=== PATIENT | male | born 1965 | race Caucasian/White ===

== ENCOUNTER → 2017-12-18 | Outpatient (CLI) | payer OTHER ==
[2017-12-18 12:52] LABS: HEMATOCRIT 45.2 % (42-52); HEMOGLOBIN 15.8 g/dL (14.0-18.0); MEAN CELL VOLUME 96.2 fL (80-100); MEAN CORPUSCULAR HEMOGLOBIN 33.6 pg (25-34); MEAN PLATELET VOLUME 12.1 fL (7.4-10.4); PLATELET COUNT 209 K/uL (130-400); RED CELL DISTRIBUTION WIDTH CV 12.1 % (11.5-14.5); RED CELL DISTRIBUTION WIDTH SD 42.2 fL (36.4-46.3); WHITE BLOOD COUNT 6.52 K/uL (4.8-10.8)
[2017-12-18 13:35] LABS: ALBUMIN 4.3 gm/dl (3.4-5.0); ALT/SGPT 20 U/L (12-78); BLOOD UREA NITROGEN 17 mg/dl (7-18); BUN/CREATININE RATIO 15.9 (10-20); CALCIUM 9.6 mg/dl (8.5-10.1); CARBON DIOXIDE 29 mmol/L (21-32); CHLORIDE 103 mmol/L (98-107); CHOLESTEROL 193 mg/dl (0-200); CREATININE 1.06 mg/dl (0.60-1.40); EstGFR CKD-E AfrAm 93.7; EstGFR CKD-E NON AfrAm 80.9; POTASSIUM 3.8 mmol/L (3.5-5.1); SODIUM 140 mmol/L (136-145)
[2017-12-18 13:35] LABS: GLUCOSE 74 mg/dl (70-99)
[2017-12-18 13:46] LABS: ALB/GLOB RATIO 1.2 (0.9-2); ALKALINE PHOSPHATASE 71 U/L (45-117); AST/SGOT 23 U/L (15-37); CHOLESTEROL/HDL RATIO 4.5; HDL CHOLESTEROL 43 mg/dl; LDL CHOLESTEROL CALCULATED 130 mg/dl; TOTAL PROTEIN 7.9 gm/dl (6.4-8.2); TRIGLYCERIDES 100 mg/dl (0-150); VERY LOW DENSITY LIPOPROT CALC 20 mg/dl
== END | disposition home or self-care (01) ==
LOC: C.LABBFT 08:37
DX: R00.2 Palpitations (principal); R94.31 Abnormal electrocardiogram [ECG] [EKG]

== ENCOUNTER 2018-07-06 17:49 | Emergency (ER) | payer OTHER ==
[~2018-07-06] VITALS: Ht 177.8 cm; Wt 77.8 kg
[2018-07-06 17:58] VITALS: TEMP 36.8; Ht 177.8 cm; Wt 77.8 kg
[2018-07-06 18:28] VITALS: O2SAT 97
[2018-07-06 18:49] LABS: BASO % 0.3 %; BASO ABS # 0.02 K/uL (0-0.2); EOS % 0.6 %; EOS ABS # 0.04 K/uL (0-0.5); HEMATOCRIT 42.3 % (42-52); IG# 0.01 K/uL (0.00-0.02); LYMPH % 28.8 %; LYMPH ABS # 1.95 K/uL (1.2-3.4); MEAN CELL VOLUME 93.4 fL (80-100); MEAN CORPUSCULAR HEMOGLOBIN 33.1 pg (25-34); MEAN CORPUSCULAR HGB CONC 35.5 g/dl (32-36); MEAN PLATELET VOLUME 11.7 fL (7.4-10.4); MONO % 8.3 %; MONO ABS # 0.56 K/uL (0.11-0.59); NEUT % 61.9 %; PLATELET COUNT 181 K/uL (130-400); RED CELL DISTRIBUTION WIDTH CV 11.9 % (11.5-14.5); RED CELL DISTRIBUTION WIDTH SD 40.4 fL (36.4-46.3); WHITE BLOOD COUNT 6.78 K/uL (4.8-10.8)
--- NOTE | 2018-07-06 18:56 | DIAGNOSTIC IMAGING REPORT ---
CHEST ONE VIEW PORTABLE CLINICAL HISTORY: 52 years-old Male presenting with palpitations. TECHNIQUE: Portable upright AP view of the chest was obtained. COMPARISON: None. FINDINGS: Atherosclerosis of the aortic arch. Cardiac silhouette enlarged. Lungs mildly hyperinflated. Nodular opacity in the right mid lung. No other focal opacity. No large effusion or pneumothorax. Osseous structures normal. IMPRESSION: 1. Apparent cardiomegaly. 2. Hyperinflation. 3. Nodular opacity in the right midlung, underlying pulmonary nodule not excluded. Further evaluation with dedicated PA and lateral views to be considered versus chest CT. Electronically signed by: Wallace Medina M.D. 07/06/2018 6:55 PM Dictated Date/Time: 07/06/2018 6:54 PM
[2018-07-06 19:00] LABS: PTT PATIENT 26.4 SECONDS (21.0-31.0)
[2018-07-06 19:19] LABS: ALKALINE PHOSPHATASE 76 U/L (45-117); ALT/SGPT 22 U/L (12-78); AST/SGOT 19 U/L (15-37); BLOOD UREA NITROGEN 22 mg/dl (7-18); CALCIUM 8.8 mg/dl (8.5-10.1); CARBON DIOXIDE 22 mmol/L (21-32); GLUCOSE 99 mg/dl (70-99); POTASSIUM 3.7 mmol/L (3.5-5.1); SODIUM 138 mmol/L (136-145); TOTAL PROTEIN 7.4 gm/dl (6.4-8.2)
[2018-07-06] MEDS ORDERED: MULT60CA PO (20:25)
[2018-07-06] MEDS ORDERED: CHOL20005 PO (20:25)
[2018-07-06] MEDS ORDERED: MUCINEX PO (20:25)
[2018-07-06] MEDS ORDERED: FEXO1TAB46 PO (20:25)
[2018-07-06] MEDS ORDERED: ZINC30TA3 PO (20:25)
[2018-07-06] MEDS ORDERED: RESV1CAP3 PO (20:25)
[2018-07-06] MEDS ORDERED: KRIL1CAP24 PO (20:25)
[2018-07-06] MEDS ORDERED: METOPROLOL TARTRATE 25 MG TAB PO STA (20:39)
[2018-07-06] MEDS ORDERED: METO25TA56 PO (20:54)
[2018-07-06 21:24] VITALS: BP 134/83; PULSE 72; O2SAT 96
--- NOTE | 2018-07-06 23:29 | EMERGENCY ROOM VISIT NOTE ---
History Report prepared by Diamante: Cheyenne Zhong Under the Supervision of: Dr. Chris Butler M.D. First contact with patient: 18:03 Chief Complaint: CARDIAC ASSESSMENT Stated Complaint: IRREGULAR HEARTBEAT DR ANDERSON Nursing Triage Summary: "I have been having issues with my heart rate since december. I had echo completed then I thought everything was fine but they told me today that it wasnt normal to come to the er now." History of Present Illness The patient is a 52 year old male who presents to the Emergency Room for a cardiac assessment beginning in October 2017. He notes he has been feeling increased heart palpations today, so he called Dr. Pena, Cardiology who recommended the patient come to the ED. The patient states he tries to stay relaxed and drink coffee however, today he felt increased weakness. The patient reports that he has difficulty sleeping due to his heart as the palpitations are sometimes so severe it wakes him up. He states he had an EKG done which was abnormal as well as a stress test at [facility]. Pt denies LOC, headache, fevers, chills, diaphoresis, visual changes, neck pain, chest pain, breathing difficulties, nausea, vomiting, abdominal pain, back pain, melena, hematochezia , urinary symptoms, numbness, lymphadenopathy, rash, or other complaints. Stress echo cardiogram done December 25, 2017 was normal. Source of History: patient Onset: October 2017 Position: other (heart) Quality: other (increased heart palpitations) Associated Symptoms: + weakness Review of Systems See HPI for pertinent positives and negatives. A total of ten systems were reviewed and were otherwise negative. Past Medical & Surgical Medical Problems: (1) No known problems Family History No pertinent family history Social History Smoking Status: Never Smoker Current/Historical Medications Scheduled Cholecalciferol (Vitamin D3), 2,000 UNITS PO Q2D Fexofenadine Hcl (Sarika), 180 MG PO DAILY Krill Oil (Krill Oil 500 mg), 1 CAP PO DAILY Metoprolol Tartrate (Lopressor) (Lopressor), 0.5 TAB PO BID Multiple Vitamins W/ Minerals (Preservision Areds 2), 1 CAP PO DAILY Resveratrol (Resveratrol), 1 CAP PO DAILY Zinc Gluconate (Zinc), 1 TAB PO Q2D Scheduled PRN [Mucinex], 1 DOSE PO DIRECTED PRN for CONGESTION Allergies Coded Allergies: No Known Allergies (Unverified , 07/06/18) Physical Exam Vital Signs Date Time Temp Pulse Resp B/P (MAP) Pulse Ox O2 Delivery O2 Flow Rate FiO2 07/06/18 21:24 72 16 134/83 96 07/06/18 21:01 72 16 134/83 96 Room Air 07/06/18 20:49 64 14 128/82 96 Room Air 07/06/18 20:19 64 11 122/88 95 Room Air 07/06/18 19:49 69 19 133/80 96 Room Air 07/06/18 19:18 71 16 126/77 95 Room Air 07/06/18 18:28 97 Room Air 07/06/18 18:20 79 07/06/18 17:58 36.8 86 18 153/74 98 Room Air Physical Exam GENERAL: Awake, alert, mildly anxious-appearing, in no distress HENT: Normocephalic, atraumatic. Oropharynx unremarkable. EYES: Normal conjunctiva. Sclera non-icteric. NECK: Supple. No nuchal rigidity. FROM. No masses. RESPIRATORY: Clear to auscultation. No wheezes. No rales. Normal respiratory effort. CARDIAC: Borderline tachycardic rate. Normal rhythm. No murmurs. No rubs. Extremities warm and well perfused. Pulses equal. No JVD. GI: Soft, non-distended. No tenderness to palpation. No rebound or guarding. No masses. RECTAL: Deferred. MUSCULOSKELETAL: Atraumatic. Chest examination reveals no tenderness. The back is symmetrical on inspection without obvious abnormality. There is no CVA tenderness to palpation. No joint edema. LOWER EXTREMITIES: Calves are equal size bilaterally and non-tender. No edema. No discoloration. NEURO: Normal sensorium. No sensory or motor deficits noted. SKIN: No rash or jaundice noted. Medical Decision & Procedures ER Provider Diagnostic Interpretation: Radiology results as stated below per my review and radiologist interpretation: CHEST ONE VIEW PORTABLE CLINICAL HISTORY: 52 years-old Male presenting with palpitations. TECHNIQUE: Portable upright AP view of the chest was obtained. COMPARISON: None. FINDINGS: Atherosclerosis of the aortic arch. Cardiac silhouette enlarged. Lungs mildly hyperinflated. Nodular opacity in the right mid lung. No other focal opacity. No large effusion or pneumothorax. Osseous structures normal. IMPRESSION: 1. Apparent cardiomegaly. 2. Hyperinflation. 3. Nodular opacity in the right midlung, underlying pulmonary nodule not excluded. Further evaluation with dedicated PA and lateral views to be considered versus chest CT. Electronically signed by: Wallace Medina M.D. 07/06/2018 6:55 PM Laboratory Results 07/06/18 18:35 Red Blood Count 4.53, Mean Corpuscular Volume 93.4, Mean Corpuscular Hemoglobin 33.1, Mean Corpuscular Hemoglobin Concent 35.5, Mean Platelet Volume 11.7, Neutrophils (%) (Auto) 61.9, Lymphocytes (%) (Auto) 28.8, Monocytes (%) (Auto) 8.3, Eosinophils (%) (Auto) 0.6, Basophils (%) (Auto) 0.3, Neutrophils # (Auto) 4.20, Lymphocytes # (Auto) 1.95, Monocytes # (Auto) 0.56, Eosinophils # (Auto) 0.04, Basophils # (Auto) 0.02 07/06/18 18:35 Test 07/06/18 18:35 07/06/18 18:43 White Blood Count 6.78 K/uL (4.8-10.8) Red Blood Count 4.53 M/uL (4.7-6.1) Hemoglobin 15.0 g/dL (14.0-18.0) Hematocrit 42.3 % (42-52) Mean Corpuscular Volume 93.4 fL (80-100) Mean Corpuscular Hemoglobin 33.1 pg (25-34) Mean Corpuscular Hemoglobin Concent 35.5 g/dl (32-36) Platelet Count 181 K/uL (130-400) Mean Platelet Volume 11.7 fL (7.4-10.4) Neutrophils (%) (Auto) 61.9 % Lymphocytes (%) (Auto) 28.8 % Monocytes (%) (Auto) 8.3 % Eosinophils (%) (Auto) 0.6 % Basophils (%) (Auto) 0.3 % Neutrophils # (Auto) 4.20 K/uL (1.4-6.5) Lymphocytes # (Auto) 1.95 K/uL (1.2-3.4) Monocytes # (Auto) 0.56 K/uL (0.11-0.59) Eosinophils # (Auto) 0.04 K/uL (0-0.5) Basophils # (Auto) 0.02 K/uL (0-0.2) RDW Standard Deviation 40.4 fL (36.4-46.3) RDW Coefficient of Variation 11.9 % (11.5-14.5) Immature Granulocyte % (Auto) 0.1 % Immature Granulocyte # (Auto) 0.01 K/uL (0.00-0.02) Prothrombin Time 11.0 SECONDS (9.0-12.0) Prothromb Time International Ratio 1.0 (0.9-1.1) Activated Partial Thromboplast Time 26.4 SECONDS (21.0-31.0) Partial Thromboplastin Ratio 1.0 Urine Color YELLOW Urine Appearance CLEAR (CLEAR) Urine pH 6.0 (4.5-7.5) Urine Specific [place] 1.006 (1.000-1.030) Urine Protein NEG (NEG) Urine Glucose (UA) NEG (NEG) Urine Ketones NEG (NEG) Urine Occult Blood NEG (NEG) Urine Nitrite NEG (NEG) Urine Bilirubin NEG (NEG) Urine Urobilinogen NEG (NEG) Urine Leukocyte Esterase NEG (NEG) Anion Gap 9.0 mmol/L (3-11) Est Creatinine Clear Calc Drug Dose 82.0 ml/min Estimated GFR () 89.6 Estimated GFR (Non- 77.3 BUN/Creatinine Ratio 19.6 (10-20) Calcium Level 8.8 mg/dl (8.5-10.1) Magnesium Level 2.2 mg/dl (1.8-2.4) Total Bilirubin 0.8 mg/dl (0.2-1) Direct Bilirubin 0.1 mg/dl (0-0.2) Aspartate Amino Transf (AST/SGOT) 19 U/L (15-37) Alanine Aminotransferase (ALT/SGPT) 22 U/L (12-78) Alkaline Phosphatase 76 U/L (45-117) Total Creatine Kinase 110 U/L (39-308) Creatine Kinase MB 1.0 ng/ml (0.5-3.6) Creatine Kinase MB Ratio 0.9 (0-3.0) Troponin I < 0.015 ng/ml (0-0.045) Total Protein 7.4 gm/dl (6.4-8.2) Albumin 4.0 gm/dl (3.4-5.0) Thyroid Stimulating Hormone (TSH) 1.550 uIu/ml (0.300-4.500) Bedside D-Dimer 348 ng/mlFEU (0-450) Laboratory results reviewed by me Medications Administered Medications (Trade) Dose Ordered Sig/Jose Route Start Time Stop Time Status Last Admin Dose Admin Metoprolol Tartrate (Lopressor Tab) 12.5 mg NOW STAT PO 07/06/18 20:39 07/06/18 20:41 DC 07/06/18 21:16 12.5 MG ECG Per My Interpretation Indication: palpitations Rate (beats per minute): 103 Rhythm: sinus tachycardia Findings: PVC, T-wave inversion (Inferior), other (right axis deviation, no ST elevation ) Comparison ECG Date: 12/2017 Change: no significant change ED Course 1802: The patient was evaluated in room C10. A complete history and physical exam was performed. 1953: I checked on the patient at this time. He is feeling slightly better. 2011: Discussed the patient's case with Dr. Calderón, Cardiology. He agreed to start the patient on a dose of Lopressor of 12.5 mg twice daily. The patient will follow up in the office. 2014: I reevaluated the patient. I told the patient about the nodule and how he should see his PCP Dr. Pena. Discussed results and discharge instructions: He verbalized understanding and agreement. The patient is ready for discharge. 2038: Ordered Lopressor Tab 12.5 mg PO Medical Decision Prior records/ancillary studies reviewed. Triage Nursing notes reviewed and agree them. The patient's history was concerning for palpitations. Differential diagnosis: Etiologies such as electrolyte abnormality, cardiac dysrhythmia, thyroid dysfunction, pulmonary embolism, infection, gastrointestinal, as well as others were entertained. Physical examination: Benign as above. ER treatment provided: Cardiac monitoring. PVCs noted. No dysrhythmias. On reassessment the patient felt better. Oral metoprolol 12.5 mg Diagnostic interpretation by me: The electrocardiogram was negative for pathologic change. He has an abnormal ECG but this is unchanged from prior. The labs revealed an unremarkable CBC and chemistry panel. Cardiac markers negative. D-dimer negative. Imaging studies: Chest x-ray as above. Patient was informed about the abnormal finding and need for follow-up with his primary physician. I gave my usual and customary discussion regarding this issue. Consultation: I did consult with [facility] cardiology, Dr. Yuriy Calderón. I discussed the case and the patient's history. Given the frequent symptomatic PVCs and mild elevation of his blood pressure it was felt that a low-dose beta-jamar such as metoprolol tartrate 12.5 mg twice daily was a reasonable option to help the patient. He recommended trying this medication and having the patient follow-up in the office. The patient felt comfortable with this plan. He was given the first dose in the ER. By the evaluation outlined above other emergent etiologies such as those listed in the differential, as well as others, were deemed relatively unlikely. The patient was educated about the findings as listed above. All questions were answered and the patient was pleased with the treatment. Return instructions were outlined and the patient was discharged in stable condition. The patient was referred to [facility] cardiology for follow-up for a recheck of the current condition. Medication Reconcilliation Current Medication List: was personally reviewed by me Blood Pressure Screening Patient's blood pressure: Elevated blood pressure Blood pressure disposition: Elevated BP felt to be situational Consults Time Called: 1953 Consulting Physician: Dr. Calderón, Cardiology Returned Call: 2011 Discussed the patient's case with Dr. Calderón, Cardiology. He agreed to start the patient on a dose of Lopressor of 12.5 mg twice daily. The patient will follow up in the office. Impression Primary Impression: Palpitations Additional Impression: PVCs (premature ventricular contractions) Scribe Attestation The scribe's documentation has been prepared under my direction and personally reviewed by me in its entirety. I confirm that the note above accurately reflects all work, treatment, procedures, and medical decision making performed by me. Departure Information Dispostion Home / Self-Care Prescriptions Metoprolol Tartrate (Lopressor) (Lopressor) 25 Mg Tab 0.5 TAB PO BID for 14 Days, #14 TAB Prov: Chris Butler MD 07/06/18 Referrals Barbie Reid PA (PCP) Forms IMPORTANT VISIT INFORMATION Patient Instructions My [facility] Additional Instructions Start metoprolol twice daily. This medication is prescribed and 25 mg tablets. Cut the tablet in half and take one half twice daily. Review the package insert for all your medications. This is necessary as important health information is provided for your benefit and current care. Follow up with [facility] cardiology as discussed. Call the number listed below under Dr. Yuriy Calderón and let the reel winder know that he is aware of the situation and will see you in the office. Follow-up with Dr. Pena's office as well. Call the office tomorrow to set up a follow-up appointment regarding the nodule seen in your lung and need for additional imaging. Return to the ER for worsening palpitations, passing out, chest pain, difficulty breathing, fevers, vomiting, worsening of your condition, or as needed. Problem Qualifiers
== END 2018-07-06 21:25 | disposition home or self-care (01) ==
LOC: C.EDB 17:51 → C.EDC 21:25
DX: I49.3 Ventricular premature depolarization (principal); Z79.899 Other long term (current) drug therapy